=== PATIENT | male | born 1975 | race Caucasian/White ===

== ENCOUNTER 2018-12-04 14:31 | Emergency (ER) | payer OTHER ==
[2018-12-04] MEDS ORDERED: KETOROLAC TROMETHAMINE 60 MG/2 ML VIAL ONE (15:07)
== END 2018-12-04 15:18 | disposition home or self-care (01) ==
LOC: EDH 14:31
DX: H60.392 Other infective otitis externa, left ear (principal); Z72.0 Tobacco use
CPT/HCPCS: 96372; 99283; J1885